=== PATIENT | female | born 2000 | race Caucasian/White ===

== ENCOUNTER → 2024-01-15 14:16 | Outpatient (REF) | payer BC, SELFPAY | LOC: RAD 14:16 | PROVIDERS: ATTENDING PHYSICIAN Internal Medicine; FAMILY PHYSICIAN Nurse Practitioner Family | DX: R19.8 Other specified symptoms and signs involving the digestive system and abdomen (principal); R10.30 Lower abdominal pain, unspecified | CPT/HCPCS: 74019 ==

== ENCOUNTER → 2024-07-02 07:22 | Outpatient (REF) | payer BC, SELFPAY | LOC: RAD 07:22 | PROVIDERS: ATTENDING PHYSICIAN Obstetrics & Gynecology; FAMILY PHYSICIAN Nurse Practitioner Family | DX: R10.12 Left upper quadrant pain (principal); N94.10 Unspecified dyspareunia; N94.4 Primary dysmenorrhea | CPT/HCPCS: 76830; 76856 ==

== ENCOUNTER → 2024-11-30 14:01 | Outpatient (REF) | payer BC, SELFPAY | LOC: RAD 14:01 | PROVIDERS: ATTENDING PHYSICIAN Nurse Practitioner Family | DX: G54.0 Brachial plexus disorders (principal) | CPT/HCPCS: 93971 ==

== ENCOUNTER → 2025-05-31 13:36 | Outpatient (REF) | payer BC, SELFPAY | LOC: MRI 3T 13:36 | PROVIDERS: ATTENDING PHYSICIAN Orthopaedic Surgery Hand Surgery; FAMILY PHYSICIAN Nurse Practitioner Family | DX: M25.512 Pain in left shoulder (principal) | CPT/HCPCS: 23350; 73040; 73222 ==